=== PATIENT | female | born 1975 | race Caucasian/White ===

== ENCOUNTER 2019-01-18 05:56 | Day surgery (SDC) | payer MEDICAID ==
[~2019-01-18] VITALS: Ht 162.6 cm; Wt 91.0 kg
[2019-01-18 07:08] VITALS: Ht 162.6 cm; Wt 91.0 kg
[2019-01-18 09:40] VITALS: BP 111/58; PULSE 60; RESP 16
== END 2019-01-18 11:20 | disposition home or self-care (01) ==
LOC: SDS 05:56
PROVIDERS: ATTEND Specialist
DX: Z30.2 Encounter for sterilization (principal)
CPT/HCPCS: 58661; 93005; J0690; J1100; J1885; J2250; J2405; J2710; J2795; J3010; Z7512; Z7610; 88302